=== PATIENT | female | born 1955 | race Caucasian/White ===

== ENCOUNTER 2016-09-20 20:31 | Inpatient (IN) ==
[2016-09-20] MEDS ORDERED: SODIUM CHLORIDE 0.9% 500 ML IV STA (22:05)
[2016-09-20] MEDS ORDERED: methylPREDNISolone SOD SUC 125 MG/2 ML VIAL IV STA (22:05)
[2016-09-20] MEDS ORDERED: cefTRIAXone 1,000 MG in SODIUM CHLORIDE 0.9% 100 ML IV STA (22:05)
[2016-09-20] MEDS ORDERED: MORPHINE 2 MG/1 ML SYRINGE IV STA (22:05)
[2016-09-20] MEDS ORDERED: ONDANSETRON 4 MG/2 ML VIAL IV STA (22:05)
--- NOTE | 2016-09-20 22:25 | XRay Report ---
Exam: XR chest 1V portable Date: 09/20/2016 10:06 PM Indication: Shortness of breath Comparison: 07/20/2010 Technical:AP portable Findings: A few reticular nodular disease present. The heart is at upper limits of normal. No obvious consolidating infiltrate or effusion. External cardiac leads and oxygen tubing are present. The mediastinum is unremarkable the necklace superimpose exam. Impression: 1. No acute cardiopulmonary pathology clearly demonstrated PROCEDURE INTERPRETED AT [facility] DEPARTMENT OF RADIOLOGY Final Report Signed by: Dr. Victor Manuel Elliott
[2016-09-20] MEDS ORDERED: ALBUTEROL 2.5 MG/3 ML NEB RESP TX SCH (22:30)
--- NOTE | 2016-09-20 22:31 | EKG Report ---
Stationary ECG Study [facility] ER Test Date: 09/20/2016 10:28:57 PM Pat Name: FABIANA NOLEN Department: Room: Gender: F Utility Bill Collector: : 1955 Requested by: Edwin Preciado Order Number: [id number] Reading MD: ANA WALLACE Intervals [place] Rate: 79 P: 56 CT: 154 QRS: 27 QRSD: 77 T: 63 QT: 367 QTc: 401 Interpretive Statements Normal ECGSINUS RHYTHM Electronically Signed On 09-21-16 08:59:07 FAMILY DAY CARER by ANA WALLACE [email or web address]
--- NOTE | 2016-09-20 22:50 | Emergency Department Note ---
Blanca Ureña Emily, am scribing for, and in the presence of, Edwin Roman MD 22: 20. Abel Ureña Charles R, MD, personally performed the services described in this documentation, ascribed by Colleen Rios in my presence, and it is both accurate and complete . Arrival - Arrival Chief Complaint: Upper Respiratory Stated Complaint: sob ED Nursing Triage Note: PATIENT STATES THAT SHE HAD A SUDDEN ONSET OF SHORTNESS OF BREATH THIS MORNING. PATIENT STATES SHE HAS BEEN HAVING A COUGH AND CONGESTION FOR THE PAST FEW DAYS. O2 SATURATION OF 96% Mode of Arrival: Wheelchair Limitations: No Limitations Source: Patient Time Seen by Provider: 09/20/16 21:57 - History of Present Illness HPI Narrative: Pt is a 61 y/o female who came to ED with c/o SOB that onset this morning. Pt reports having cough and congestion for past 3 days, but this is first time to have sx of SOB like this visit. Pt denies hx of smoking, lung problems, chest pain, asthma or bronchitis, or being exposed to someone with illness. Pt states she "feels like I need to cough or throw up but scared to because she might choke." Pt's only PMHx is RA. Pt's PCP is Dr. Catherine. Onset (ago): hour(s) Consistency: constant Severity: moderate Severity scale (1-10): 6 Quality: fullness Date of Last Menstrual Period: MENOPAUSE Allergies/Adverse Reactions: Allergies Allergy/AdvReac Type Severity Reaction Status Date / Time No Known Allergies Allergy Unverified 09/20/16 20:42 Home Medications: Home Medications Medication Instructions Recorded Confirmed Type Etanercept [Enbrel] 25 mg SQ Q7DAY 09/20/16 09/20/16 History Leflunomide [Arava] 20 mg PO DAILY 09/20/16 09/20/16 History Review of System - Review of System 12 point system: reviewed and no additional remarkable complaints except as stated - Review of System Constitutional: Absent: chills, fever Head/Ears/Nose/Throat: Absent: nasal drainage Respiratory: Present: cough, respiratory distress (SOB) Cardiovascular: Absent: chest pain, edema, syncope Gastrointestinal: Absent: abdominal pain, nausea Musculoskeletal: Absent: arm pain, back pain, leg pain, neck pain Skin: Absent: rash Neurological: Absent: headache Medical,Surgical,& Family Hx - Medical History Rheumatology: History of;: Rheumatoid Arthritis Other: History of: Miscellaneous Medical Problems (RHEUMATOID ARTHRITIS) - Surgical History Reproductive Surgeries: Surgical HX of;: Tubal Ligation Orthopedic Surgeries: Surgical HX of;: Orthopedic Surgery (ANKLES, SHOULDERS, HIPS, ELBOW, TOES) - Family History Family History: Reports;: Family Cancer - Social History Smoking Status: Never smoker Frequency of Alcohol Use: Occasionally Type of Drug Use: None Exam Vital Signs: Vital Signs Temperature 98.7 F 09/20/16 20:43 Pulse Rate 93 H 09/20/16 23:30 Respiratory Rate 18 09/20/16 23:30 Blood Pressure 137/71 09/20/16 20:43 O2 Sat by Pulse Oximetry 100 09/20/16 23:30 - General General appearance: alert, in distress - Head Head exam: Present: atraumatic, normocephalic - Eye Eye exam: Present: PERRL, EOMI - ENT ENT exam: Present: mucous membranes moist. Absent: mucous membranes dry - Neck Neck exam: Present: full ROM. Absent: tenderness - Chest Chest inspection: Present: symmetric chest wall rise. Absent: tenderness - Respiratory Respiratory exam: Present: accessory muscle use (retractions), rhonchi ( bilateral; equally), wheezes, other (tachypnic). Absent: normal lung sounds bilaterally - Cardiovascular Cardiovascular exam: Present: tachycardia, normal heart sounds - Abdominal Exam Abdominal exam: Present: soft. Absent: distention, tenderness - Extremities Exam Extremities exam: Present: full ROM. Absent: tenderness, pedal edema - Back Exam Back exam: Present: full ROM. Absent: tenderness - Neurological Exam Neurological exam: Present: alert, oriented X3, CN II-XII intact. Absent: motor sensory deficit - Psychiatric Psychiatric exam: Present: normal affect, normal mood - Skin Skin exam: Present: warm, dry Course - Consultations Consultation #1: Dr. Bolden will admit patient Time: 00:34 Results - Labs CBC & BMP: 09/20/16 22:20 09/20/16 22:20 Lab Results: I have reviewed the patients labs Labs: Microbiology 09/20/16 23:01 Nasal Aspirate Influenza Types A,B Antigen (WILFRIDO) - Final Negative for Influenza A Ag Negative for Influenza B Ag Laboratory Tests 09/20/16 22:20 MCV 86.2 L MCHC 31.3 L Lymph % (Auto) 20.0 L Lymph # (Auto) 1.2 L Laboratory Tests 09/20/16 09/20/16 22:20 22:50 Anion Gap 16.6 H Troponin I 0.505 H Total Protein 8.4 H Globulin 4.4 H Albumin/Globulin Ratio 0.9 L Urine Urobilinogen < 2.0 H - Diagnostic Findings Procedure: Chest x-ray: report reviewed by me (No acute cardiomegaly pathology clearly demonstrated.) Disposition Clinical Impression: Upper respiratory infection, Bronchitis, Acute dyspnea, Elevated troponin Case discussed with: patient, patient's family Disposition: Still a Patient Condition: Stable Time of Disposition: 00:44
[2016-09-20] MEDS ORDERED: cefTRIAXone 1,000 MG VIAL ONE (22:54)
[2016-09-20] MEDS ORDERED: methylPREDNISolone SOD SUC 125 MG/2 ML VIAL ONE (22:55)
[2016-09-20] MEDS ORDERED: MORPHINE 2 MG/1 ML SYRINGE ONE (22:55)
[2016-09-20] MEDS ORDERED: ONDANSETRON 4 MG/2 ML VIAL ONE (22:55)
[2016-09-20 22:58] LABS: Basophils % 0.2 % (0.0-0.8); Eosinophils # 0.1 10*3/uL (0.0-0.87); Eosinophils % 0.8 % (0.00-10.9); Hematocrit 39.3 VOL% (35.7-47.0); Hemoglobin 12.3 GM/DL (12.0-16.0); Immature Granulocytes % 0.3 %; Immature Granulocytes Absolute 0.02 #; Lymphocytes # 1.2 10*3/uL (1.4-4.0); Mean Corpuscular HGB Conc 31.3 GM/DL (32-36); Mean Corpuscular Hemoglobin 27 PG (27-34); Mean Corpuscular Volume 86.2 FL (87-102); Mean Platelet Volume 11.1 FL (9.6-12.0); Monocytes # 0.4 10*3/uL (0.11-0.8); Monocytes % 6.4 % (1.7-12.7); Neutrophils # 4.5 10*3/uL (1.4-7.4); Neutrophils % 72.3 % (38.7-73.9); Platelet Count 207 10*3/uL (130-400); Red Blood Count 4.56 10*6/uL (3.8-5.5); Red Cell Distribution Width 14.4 % (9.3-17.3); White Blood Count 6.2 10*3/uL (4.5-13.71)
[2016-09-20 23:17] LABS: D-Dimer 1.5 MG/L FEU; INR 1.1; PT Patient Result 11.4 SECS
[2016-09-20 23:18] LABS: Bilirubin,Total 0.6 MG/DL (0.2-1.0); Magnesium 2.1 MG/DL (1.8-2.4); Osmolality,Calculated 279.3 MOS/KG (273-304); Potassium 3.6 MMOL/L (3.5-5.1); Total Protein 8.4 G/DL (6.4-8.3)
[2016-09-20 23:19] LABS: Troponin I Only 0.505 NG/ML (0.00-0.045)
[2016-09-20 23:27] LABS: Apearance,Urine Slightly Hazy (Clear); Bilirubin,Urine Negative (Negative); Blood, Urine Negative (Negative); Glucose,Urine (UA) Negative (Negative); Ketones,Urine 5 mg/dL (Negative); Mucus,Urine Occasional /LPF (Occasional); Nitrite,Urine Negative (Negative); Protein,Urine Negative; RBC,Urine 1 /HPF (0-4); Squamous Epithelial Cell,Urine Occasional /HPF (0-10); Urine Color Yellow (Yellow); Urine Specific Gravity 1.017 (1.001-1.035); Urine Urobilinogen < 2.0 EU/DL (0.2-1.0); WBC,Urine 3 /HPF (0-6)
[2016-09-21] MEDS ORDERED: ENOXAPARIN 100 MG/ML SYRINGE SUBCUT STA (00:44)
[2016-09-21] MEDS ORDERED: ASPIRIN EC 325 MG TABLET PO STA (00:45)
[2016-09-21] MEDS ORDERED: ENOXAPARIN 60 MG/0.6 ML SYRINGE ONE (00:49)
[2016-09-21] MEDS ORDERED: ASPIRIN 325 MG TABLET ONE (00:49)
--- NOTE | 2016-09-21 02:02 | Hospitalist History & Physical ---
Assessment and Plan (1) Acute dyspnea Status: Acute Assessment and plan: The patient is to the hospital with acute onset of dyspnea. Chest x-ray without evidence of infiltrate. CT angiogram without evidence of pulmonary embolus. The patient takes disease modifying agents for her rheumatoid arthritis and could have pneumonia without much infiltrate apparent. The patient will be admitted to the hospital for pulmonary and cardiac evaluation. We note troponin with mild elevation and we'll recheck that in the morning. Current Visit: Yes (2) Upper respiratory infection Status: Acute Current Visit: Yes (3) Rheumatoid arthritis Status: Acute Current Visit: Yes (4) Elevated troponin Status: Acute Current Visit: Yes History of Present Illness Chief complaint: shortness of breath History of present illness: Ms. Villalobos is a 61 year old female with history of rheumatoid arthritis on disease modifying agents. On the day prior to admission the hospital the patient began having cough and a feeling of difficulty catching her breath. The patient has had sneezing, runny nose, and persistent cough. The patient has had some subjective fever. The patient has not had angina, abdominal pain, or rash. The patient's symptom of shortness of breath is moderate, continuous, and improved somewhat with beta agonist nebulized breathing therapy in the emergency room. The patient has not been previously diagnosed with asthma or bronchitis. The patient is admitted to the hospital for evaluation of shortness of breath in association with pulmonary or cardiac disease. Home Medications Medication Instructions Recorded Confirmed Type Etanercept [Enbrel] 25 mg SQ Q7DAY 09/20/16 09/20/16 History Leflunomide [Arava] 20 mg PO DAILY 09/20/16 09/20/16 History Allergies Allergy/AdvReac Type Severity Reaction Status Date / Time No Known Allergies Allergy Unverified 09/20/16 20:42 Medical,Surgical,& Family Hx - Medical History Rheumatology: History of;: Rheumatoid Arthritis Other: History of: Miscellaneous Medical Problems (RHEUMATOID ARTHRITIS) - Surgical History Reproductive Surgeries: Surgical HX of;: Tubal Ligation Orthopedic Surgeries: Surgical HX of;: Orthopedic Surgery (ANKLES, SHOULDERS, HIPS, ELBOW, TOES) - Family History Family History: Reports;: Family Cancer - Social History Smoking Status: Never smoker Frequency of Alcohol Use: Occasionally Type of Drug Use: None Marital Status: Lives With:: Spouse Functional capacity: independent ambulation 12 point system: reviewed and no additional remarkable complaints except as stated Exam - Constitutional Vitals: Period Temp Pulse Resp BP Sys/Kay Pulse Ox Last 24 Hr 98.7 F 88-93 18-26 137/71 96-100 Exam: Constitutional System: Mild distress. The patient has rheumatoid deformities of her joints. No tremulousness. Head: Normocephalic, atraumatic. Ears, Nose and Throat System: No evidence of Otitis or Mastoiditis. No epistaxis or discharge Eyes System: Pupils equal, round, and reactive. Extraocular muscles intact. Neck: Supple, without adenopathy, No jugular venous distention. No thyromegaly , neck mass, or prior surgery apparent. Uvula without swelling Respiratory System: Chest mild wheezing and mild air trapping to auscultation. Cardiovascular System: Heart with regular rate and rhythm. No murmur. GI System: Abdomen soft, nontender. Normoactive bowel sounds present. Musculoskeletal System: limbs with no pedal edema. Full distal pulses. Rheumatoid deformities Neurological System: No discernable sensory deficit. No aphasia Psychiatric System: Conversation is rational Results - Labs CBC & BMP: 09/20/16 22:20 09/20/16 22:20 Lab Results: I have reviewed the past 24 hour labs Labs: Troponin 0.50
[2016-09-21] MEDS: ALBUTEROL/IPRATROPIUM 3 ML NEB RESP TX SCH ×3 (03:51→11:19)
[2016-09-21 05:09] LABS: Hematocrit 34.8 VOL% (35.7-47.0); Hemoglobin 10.9 GM/DL (12.0-16.0); Immature Granulocytes % 0.5 %; Immature Granulocytes Absolute 0.02 #; Lymphocytes # 0.5 10*3/uL (1.4-4.0); Lymphocytes % 11.2 % (21.3-54.2); Mean Corpuscular HGB Conc 31.3 GM/DL (32-36); Mean Corpuscular Hemoglobin 27 PG (27-34); Mean Corpuscular Volume 85.1 FL (87-102); Mean Platelet Volume 11.3 FL (9.6-12.0); Monocytes # 0.1 10*3/uL (0.11-0.8); Monocytes % 2.7 % (1.7-12.7); Neutrophils # 3.8 10*3/uL (1.4-7.4); Neutrophils % 85.6 % (38.7-73.9); Platelet Count 179 10*3/uL (130-400); Red Blood Count 4.09 10*6/uL (3.8-5.5); Red Cell Distribution Width 14.3 % (9.3-17.3); White Blood Count 4.4 10*3/uL (4.5-13.71)
[2016-09-21 05:41] LABS: Magnesium 1.9 MG/DL (1.8-2.4); Potassium 3.9 MMOL/L (3.5-5.1)
[2016-09-21 05:42] LABS: Troponin I Only 0.368 NG/ML (0.00-0.045)
--- NOTE | 2016-09-21 06:52 | CT Report ---
History is short of breath Axial images obtained with 2-D multiplanar reconstruction images also stored and interpreted 80 cc Omni 350 utilized No enlarged mediastinal or hilar nodes seen. No persistent filling defects in the pulmonary arteries. No pleural effusions present On the final images, there is question of a small gallstone. There are chronic changes in the shoulders Mild areas of scarring in the lung bases again seen. There is a minimally increasing patchy and stranding opacity in the right lung base 4 millimeters nodule in the right lung base is unchanged also present on a study of 2009. A 3 mm nodule in the right lung apex also present on the prior studies. Tiny calcified granuloma present Impression: 1. Minimal patchy infiltrate/atelectasis the right lung base superimposed on chronic changes 2. No evidence of pulmonary embolus seen PROCEDURE INTERPRETED AT [facility] DEPARTMENT OF RADIOLOGY Final Report Signed by: Dr. Jennifer Rushing
--- NOTE | 2016-09-21 07:14 | EKG Report ---
Stationary ECG Study [facility] Test Date: 09/21/2016 7:13:21 AM Pat Name: FABIANA NOLEN Department: Room: 265 Gender: F Dyeing Machine Feeder: DAVID : 1955 Requested by: Weston Bolden Order Number: [id number] Reading MD: ANA WALLACE Intervals [place] Rate: 74 P: 74 [place]: 186 QRS: 30 QRSD: 92 T: 69 QT: 424 QTc: 451 Interpretive Statements Normal ECG.SINUS RHYTHM Electronically Signed On 09-21-16 09:00:24 [employer]LL[employer] MILL OPERATOR by ANA WALLACE [email or web address]
--- NOTE | 2016-09-21 08:06 | XRay Report ---
Exam: Chest 2 views Date: September 21, 2016 at 7:23 AM Comparison: Chest one view portable September 20, 2016, CT chest PE study September 21, 2016 Reason: Dyspnea/shortness of breath Findings: The cardiac silhouette is normal in size. The lungs are hyperexpanded, which can be seen in COPD. Probable minimal atelectasis is seen at the lung bases on a recent CT but is not identified on this study. No focal consolidation, pneumothorax or pleural effusion is identified. The osseous structures appear stable with severe degenerative change at both shoulders. There may be chronic dislocation of the right humeral head. Impression: The lungs are hyperexpanded, which can be seen in COPD. No acute pulmonary process is identified. PROCEDURE INTERPRETED AT [facility] DEPARTMENT OF RADIOLOGY Final Report Signed by: Dr. Preet Singh
[2016-09-21] MEDS ORDERED: LEFLUNOMIDE 10 MG TABLET PO SCH (09:00)
[2016-09-21] MEDS ORDERED: NON-FORMULARY MEDICATION (Etanercept [Enbrel] 25 MG) SQ SCH (09:00)
[2016-09-21] MEDS ORDERED: MONTELUKAST 10 MG TABLET PO SCH (10:30)
--- NOTE | 2016-09-21 10:59 | Pulmonology Consult Note ---
History of Present Illness Chief complaint: Acute cough. Acute shortness of breath. History of present illness: Ms. Villalobos is a 61 year old white female whom I been asked to see in pulmonary consultation for evaluation and treatment. This patient denies any past history of lung problems. She is recently had a sore throat with settled into her chest. Later on the night of 09/21/2016 she developed shortness of breath wheezing she had a good deal of trouble getting her breath subsequently came to the emergency room and was admitted to the hospital. This patient has a number of other problems. See below. Her review of systems is otherwise negative. Allergies. None. Home medicines. Enbrel and Arava Past history. Rheumatoid arthritis. This has required multiple orthopedic surgeries that involved her ankles or knees or hips or shoulders her toes or elbows. Family history is positive for cancer Social history patient does not use tobacco she occasionally uses alcohol but she says not to excess. She is and lives with her . Chest x-rays done 09/20/2015 and done 09/21/2015 shows some hyperinflation no definite infiltrates x-ray at admission shows some slight increase in interstitial markings in the right lower lung field and these could have been an early infiltrate that did did not go ahead and develop. Microbiology. Influenza screen is negative other studies are pending. Lab. Admit white count was 6272 segs 20 lymphs and 6 monos. H&H is 12.3/39.3. INR is 1.1 electrolytes were normal. Creatinine was 0.6. Natruretic peptide was 44 total protein and globulins were elevated 8.4 4.4 respectively. Urinalysis showed no evidence of infection. Vital signs. See below Psychiatric. Oriented 3 Eyes sclera conjunctiva are normal face is symmetrical. Salivary glands are normal nares lips and tongue are normal Neck. Symmetrical. No meningismus Lymphatics. No submandibular cervical supraclavicular adenopathy. Arterial exam carotids are decreased I do not hear any bruits upper extremity pulses are palpable. Lower extremity pulses are palpable no evidence of ischemia. Venous exam of the neck upper and lower extremities are normal. Neurologic. Cranial nerves are intact long track motor functions intact Chest. Very mild tracheal and large airway wheeze with very mild associated congestion. I do not hear any peripheral wheezes. There was no significant chest wall tenderness Heart. Regular. Possible midsystolic click. Breast deferred Abdomen. Liver edge feels normal bowel sounds are present no tenderness Extremities. Deformity of the digits in the upper and lower extremities secondary to rheumatoid arthritis. Multiple surgical scars of major joints such as the shoulders and the knees. No evidence of deep venous thrombophlebitis. The remainder the physical exam is noncontributory. Impression. 1. Acute respiratory infection that could have had a viral component but appears now to have a bacterial component. This is resulted in tracheal and large airway wheezing which is a new symptom for the patient. She had associated shortness of breath. It is possible she had an early right lower lung interstitial infiltrate on the night of admission but if she did this is resolved. 2. Severe rheumatoid arthritis 3. Immunologic modifying medicines. Plan. 1. Continue inhalation therapy. Patient says this is helped her a lot. 2. Tessalon Perles 200 mg 3 times a day. She has a lot of coughing but very little production. 3. Mucinex 600 mg twice a day then sputum 4. Sputum for Gram stain culture and sensitivity 5. Cold agglutinins 6. If wheezing does not resolve can consider steroids. 7. I have discussed the case with Dr. Bolden and we have coordinated longterm Medications Medication Instructions Recorded Confirmed Type Etanercept [Enbrel] 25 mg SQ Q7DAY 09/20/16 09/21/16 History Leflunomide [Arava] 20 mg PO DAILY 09/20/16 09/21/16 History cycloSPORINE OPH EMUL [Restasis] 1 drop BOTH EYES BID 09/21/16 09/21/16 History Allergies Allergy/AdvReac Type Severity Reaction Status Date / Time No Known Allergies Allergy Unverified 09/20/16 20:42 Exam (Pulmonay) H&P - Constitutional Vitals: Period Temp Pulse Resp BP Sys/Kay Pulse Ox Last 24 Hr 96.7 F-97.2 F 75-89 18-20 122-128/64-67 96-100 Medical,Surgical,& Family Hx - Medical History Rheumatology: History of;: Rheumatoid Arthritis Genitourinary: History of: Kidney Stones Other: History of: Miscellaneous Medical Problems (RHEUMATOID ARTHRITIS) - Surgical History Reproductive Surgeries: Surgical HX of;: Tubal Ligation Orthopedic Surgeries: Surgical HX of;: Orthopedic Surgery (ANKLES, SHOULDERS, HIPS, ELBOW, TOES) - Family History Family History: Reports;: Family Cancer (Mother-Uterine cancer), Additional Family History (Father is on dialysis) - Social History Smoking Status: Never smoker Frequency of Alcohol Use: Occasionally Type of Drug Use: None Results - Labs CBC & BMP: 09/21/16 03:48 09/21/16 03:48
[2016-09-21] MEDS ORDERED: REGADENOSON 0.4 MG/5 ML SYRINGE IV ONE (11:10)
[2016-09-21 12:21] VITALS: BP 110/62
--- NOTE | 2016-09-21 13:55 | Cardiology Consult Note ---
Ramon Ureña Lauren, RN, am scribing for, and in the presence of, Yajaira Rebollar MD 13:55. Assessment and Plan - Time spent with patient Time spent with patient: Less than 30 minutes (1) Acute dyspnea Status: Acute Assessment and plan: We will set her up for stress testing today to rule out any underlying coronary artery disease. Current Visit: Yes (2) Elevated troponin Status: Acute Assessment and plan: Denies chest pain, palpitations, dizziness, lightheadedness, syncope. Denies recent chest pain or shortness of breath on exertion. We will set her up for stress test today to rule out for underlying CAD. Current Visit: Yes (3) Rheumatoid arthritis Status: Chronic Assessment and plan: Followed by hospital medicine. Current Visit: Yes (4) Upper respiratory infection Status: Acute Assessment and plan: Followed by hospital medicine. This could be contributing to her shortness of breath. Current Visit: Yes History of Present Illness - Data of Consult Patient: new to practice Consult date: 09/21/16 Requesting Physician: Danelle Leung Primary care physician: Ramy Lawson - Consult Narrative Reason for consult: dyspnea, elevated troponin History of present illness: Ms. Villalobos is a 61 year old female who has never seen a jump roll operator. Her primary care provider is Dr. Lawson. She has a past medical history of rheumatoid arthritis and panic attacks. She denies any history of diabetes, hypertension, hyperlipidemia, or lung problems. She has never smoked. She denies any significant family history of heart disease. She presented to the emergency room this morning with complaints of acute onset of dyspnea. She tells me she woke up with a cough and then had a panic attack where she felt like she could not breathe. She reports feeling like there were secretions in her chest that she could not clear. CT is negative for PE. Chest x-ray shows no evidence of infiltrate. She has had a slight bump in her troponin. First troponin was 0.505, second troponin was 0.368. She denies chest pain, palpitations, dizziness, lightheadedness, syncope. She denies any recent fever or chills. She denies any recent exertional chest pain or exertional shortness of breath. She reports she is feeling much better today and is having no trouble breathing. She has been in sinus rhythm with well- controlled rate. Blood pressure has been well controlled. She did not have any antecedent exertional symptoms, nor has she experienced a change in her exercise tolerance. She currently feels that she is at baseline. We will set her up for stress test today to rule out for underlying CAD. CC: Danelle Leung MD - Home Medications and Allergies Home Medications: Home Medications Medication Instructions Recorded Confirmed Type Etanercept [Enbrel] 25 mg SQ Q7DAY 09/20/16 09/21/16 History Leflunomide [Arava] 20 mg PO DAILY 09/20/16 09/21/16 History cycloSPORINE OPH EMUL [Restasis] 1 drop BOTH EYES BID 09/21/16 09/21/16 History Allergies/Adverse Reactions: Allergies Allergy/AdvReac Type Severity Reaction Status Date / Time No Known Allergies Allergy Unverified 09/20/16 20:42 - Constitutional Constitutional: Absent: anorexia, chills, daytime sleepiness, excessive sweating , fatigue, fever(s), frequent falls, headache(s), increased appetite, lethargy, malaise, night sweats, stops breathing during sleep, weakness, weight gain, weight loss - EENT Eyes: Absent: blurry vision, diplopia, loss of vision Ears: Absent: decreased hearing, ear discharge, ear pain Nose, mouth and throat: Absent: dysphagia, epistaxis, headache(s), hoarseness, lip swelling, nasal congestion, neck mass, neck pain, sinus pressure, sore throat, throat swelling, tongue swelling, vertigo - Cardiovascular Cardiovascular: Present: as per HPI, dyspnea. Absent: chest pain at rest, chest pain with activity, claudication, diaphoresis, dyspnea on exertion, edema , radiating jaw, neck or arm pain, lightheadedness, orthopnea, palpitations, PND - Respiratory Respiratory: Present: as per HPI, cough, dyspnea. Absent: hemoptysis, dyspnea on exertion, wheezing, snoring, pain on inspiration - Gastrointestinal Gastrointestinal: Absent: abdominal pain, bloating, change in bowel habits, coffee ground emesis, constipation, cramping, diarrhea, dysphagia, heartburn, hematemesis, loose stools, melena, nausea, vomiting - Genitourinary Genitourinary: Absent: difficulty urinating, dysuria, flank pain, urinary frequency, urinary hesitancy, urinary incontinence - Musculoskeletal Musculoskeletal: Present: joint swelling (history of RA), limited range of motion (history of RA). Absent: arthralgias, back pain - Neurological Neurological: Absent: abnormal gait, abnormal speech, behavioral changes, confusion, convulsions, disequilibrium, dizziness, focal weakness, frequent falls, headache(s), memory loss, numbness, paresthesias, radicular pain, syncope , tremor(s) - Psychiatric Psychiatric: Present: panic attacks. Absent: anxiety, depression, memory loss - Endocrine Endocrine: Absent: cold intolerance, fatigue, heat intolerance, polydipsia, polyphagia - Hematologic/Lymphatic Hematologic/Lymphatic: Absent: easy bleeding, easy bruising, lymphadenopathy Medical,Surgical,& Family Hx - Medical History Rheumatology: History of;: Rheumatoid Arthritis Genitourinary: History of: Kidney Stones Other: History of: Miscellaneous Medical Problems (RHEUMATOID ARTHRITIS) - Surgical History Reproductive Surgeries: Surgical HX of;: Tubal Ligation Orthopedic Surgeries: Surgical HX of;: Orthopedic Surgery (ANKLES, SHOULDERS, HIPS, ELBOW, TOES) - Family History Family History: Reports;: Family Cancer (Mother-Uterine cancer), Additional Family History (Father is on dialysis) - Social History Smoking Status: Never smoker Frequency of Alcohol Use: Occasionally Type of Drug Use: None Physical Examination Vital Signs Temp Pulse Resp BP Pulse Ox 98.7 F 89 20 137/71 96 09/20/16 20:43 09/20/16 20:43 09/20/16 20:43 09/20/16 20:43 09/20/16 20:43 General: Present: Appears Well, No Apparent Distress HEENT: Present: Normocephaly, Mucus Membranes Moist Neck: Present: Supple Neck, Midline Trachea, No Masses, No Bruit, No Lymphadenopathy, No Thyromegaly Cardiac: Present: Reg Rate and Rhythm, No Murmur Lungs: Present: Normal Exam, Clear Ascult./Percussion, Normal Breath Sounds, No Wheeze, Rales, Rhonchi Neuro: Present: Grossly Intact. Absent: Resting Tremor, Essential Tremor Abdomen: Present: Soft, Active Bowel Sounds, No Masses, No Pulsations/Bruits, Non-Tender Skin: Present: Clear. Absent: Rash Musculoskeletal: Present: No Pain, Normal Range of Motion Extremities: Present: No Clubbing, No Cyanosis, Normal Upper Extr. Pulses, Normal Lower Extr. Pulses, Edema (MEDIA SALES REPRESENTATIVE to bilateral ankles) Result/EKG - Labs CBC & BMP: 09/21/16 03:48 09/21/16 03:48 Lab Results: I have reviewed the past 24 hour labs Labs: Laboratory Results - last 24 hr 09/21/16 09/21/16 03:48 03:48 WBC 4.4 L RBC 4.09 Hgb 10.9 L Hct 34.8 L MCV 85.1 L MCH 27 MCHC 31.3 L RDW 14.3 Plt Count 179 MPV 11.3 Neut % (Auto) 85.6 H Lymph % (Auto) 11.2 L [place] % (Auto) 2.7 Eos % (Auto) 0.0 Baso % (Auto) 0.0 Neut # (Auto) 3.8 Lymph # (Auto) 0.5 L [place] # (Auto) 0.1 L Eos # (Auto) 0.0 Baso # (Auto) 0.0 Immature Gran % 0.5 Nucleated RBC % 0.0 Immature Gran # 0.02 Nucleated RBCs # 0.00 Sodium 143 Potassium 3.9 Chloride 109 H Carbon Dioxide 23 Anion Gap 14.9 BUN 9 Creatinine 0.50 L GFR Calculation 98 BUN/Creatinine Ratio 18.00 Glucose 148 H Calculated Osmolality 286.0 Calcium 8.0 L Magnesium 1.9 Total Creatine Kinase 36 Troponin I 0.368 H D - EKG EKG results: interpreted by me, sinus rhythm I, Yajaira Rebollar MD, personally performed the services described in this documentation, ascribed by Lovely Navarro, RN in my presence, and it is both accurate and complete 355 .
--- NOTE | 2016-09-21 14:46 | Nuclear Medicine Report ---
EXERCISE NUCLEAR STRESS TEST DATE: 09/21/2016 REFERRING: Yajaira Rebollar MD INTERPRETING: Yajaira Rebollar MD INDICATION: A 61-year-old female with dyspnea, elevated troponin. PROCEDURE: The patient underwent exercise Cardiolite per protocol, and 10 mCi of Technetium-99 were injected for rest imaging. Subsequently, the patient was exercised per [place] protocol and at peak stress 30 mCi of Technetium-99 were injected for stress imaging. ECG interpretation was supervised by and interpreted by rajni Wyatt. The patient exercised to 4.7 METS, maximum heart rate 138 beats per minute, 85% maximum predicted heart rate. Peak blood pressure was 150/90. SPECT images were obtained in the short axis, horizontal, and vertical long axis with gating. Eject ion fraction is 74%. End-diastolic volume 48 mL, end-systolic 12 mL, stroke volume is 35 mL. Overa ll wall motion and thickening is grossly normal. At rest, there is homogenous radiotracer uptake throughout the myocardium. With stress imaging, no new radiotracer defects develop. IMPRESSION: 1. NORMAL LEFT VENTRICULAR SYSTOLIC FUNCTION. 2. GOOD EXERCISE TOLERANCE. 3. NORMAL CHRONOTROPIC RESPONSE TO EXERCISE. 4. NORMAL MYOCARDIAL PERFUSION WITHOUT EVIDENCE OF ISCHEMIA. Procedure performed and interpreted at [facility] Department of Radiology.
[2016-09-21] MEDS ORDERED: BENZONATATE 100 MG CAPSULE PO SCH (15:00)
--- NOTE | 2016-09-21 15:01 | Discharge Summary ---
Hospital Course - Hospital Course Hospital Course: see addendum to H&P from this morning. Diagnosis - Discharge Diagnosis (1) Bronchitis Status: Acute (2) Acute dyspnea Status: Acute (3) Elevated troponin Status: Acute (4) Rheumatoid arthritis Status: Chronic Specialty Discharge - Follow Up or Referrals Follow up with: Victor Manuel Catherine MD [Physician] - 5 Days Discharge Plan - Discharge Data Disposition: Disch To Home/Self Care Condition at Discharge: Stable Discharge Diet: advance to your usual diet Activity: resume usual activities as tolerated - Discharge Medications New Azithromycin [Azithromycin Z Pack] 250 mg PO DIRECTED #1 tablet Montelukast Tab [Singulair Tab] 10 mg PO DAILY #30 tablet Guaifenesin [Guaifenesin ER] 600 mg PO BID #30 tab.er.12h Benzonatate [Tessalon] 200 mg PO TID #30 capsule Continue Etanercept [Enbrel] 25 mg SQ Q7DAY cycloSPORINE OPH EMUL [Restasis] 1 drop BOTH EYES BID Leflunomide [Arava] 20 mg PO DAILY - Follow Up or Referral - Forms/Instructions Exam - Constitutional Vitals: Period Temp Pulse Resp BP Sys/Kay Pulse Ox Last 24 Hr 96.7 F-98.6 F 75-89 18-20 110-128/62-67 96-100 General appearance: no acute distress - Respiratory Respiratory exam: Present: clear to auscultation bilaterally - Cardiovascular Cardiovascular exam: Present: regular rate and rhythm - GI/Abdominal GI/Abdominal exam: Present: normal bowel sounds, soft. Absent: tenderness - Neurological Exam Neurological exam: Present: alert, oriented X3 Discharge Results Procedures and tests throughout hospitalization: Pending Orders 09/21/16 10:22 Sputum Culture and Gram Stain Routine 09/21/16 12:25 Cold Agglutinins Routine Legionella Pneumophilia Ab Routine 09/22/16 04:00 XR chest 2V IN AM Labs on day of discharge: Labs from last 24 hours 09/21/16 09/21/16 03:48 03:48 WBC 4.4 L RBC 4.09 Hgb 10.9 L Hct 34.8 L MCV 85.1 L MCH 27 MCHC 31.3 L RDW 14.3 Plt Count 179 MPV 11.3 Neut % (Auto) 85.6 H Lymph % (Auto) 11.2 L [place] % (Auto) 2.7 Eos % (Auto) 0.0 Baso % (Auto) 0.0 Neut # (Auto) 3.8 Lymph # (Auto) 0.5 L [place] # (Auto) 0.1 L Eos # (Auto) 0.0 Baso # (Auto) 0.0 Immature Gran % 0.5 Nucleated RBC % 0.0 Immature Gran # 0.02 Nucleated RBCs # 0.00 Sodium 143 Potassium 3.9 Chloride 109 H Carbon Dioxide 23 Anion Gap 14.9 BUN 9 Creatinine 0.50 L GFR Calculation 98 BUN/Creatinine Ratio 18.00 Glucose 148 H Calculated Osmolality 286.0 Calcium 8.0 L Magnesium 1.9 Total Creatine Kinase 36 Troponin I 0.368 H D DS: Provider Date of admission: 09/21/16 01:25 Primary care physician: Temo Ray MD Attending physician on admission: Danelle Leung MD Consults: 09/21/16 02:04 Consult to Physician [CONS] Routine Comment: dyspnea Consulting Provider: Victor Manuel Catherine Consult to Physician [CONS] Routine Comment: dyspnea, elevated troponin Consulting Provider: Yajaira Rebollar Consult to Specialist Group: Cardiology Person Notified: JUSTINO Date Notified: 09/21/16 Time Notified: 07:50 Discharging clinician: Danelle Leung MD
--- NOTE | 2016-09-21 20:18 | ECHO Report ---
Fatou Villalobos Exam Date: 09/21/2016 14:20 Referring Physician: Technologist: Mustapha PHAN Age: 61 Ht (in): Wt (lb): Gender: F Exam Location: [facility] Echo Indications: cardia eval, URI, Bronchitis, elevated troponin BP: / HR: Rhythm: Sinus Technical Quality: Fair IMPRESSIONS Normal LV systolic and diastolic function, ejection fraction 60%. Trace mitral regurgitation. Mild mitral regurgitation. MEASUREMENTS (Male / Female) Normal Values 2D ECHO LV Diastolic Diameter PLAX 3.5 cm 4.2 - 5.9 / 3.9 - 5.3 cm LV Systolic Diameter PLAX 2.3 cm LV Fractional Shortening PLAX 36.3 % IVS Diastolic Thickness 1.1 cm 0.6 - 1.0 / 0.6 - 0.9 cm LVPW Diastolic Thickness 0.9 cm 0.6 - 1.0 / 0.6 - 0.9 cm RV Internal Dim ED PLAX 2.0 cm Aortic Root Diameter 2.4 cm LA Systolic Diameter LX 2.5 cm 3.0 - 4.0 / 2.7 - 3.8 cm DOPPLER TR Peak Velocity 195.0 cm/s TR Peak Gradient 15.2 mmHg FINDINGS Left Ventricle Normal left ventricular size, systolic function and wall thickness, with no regional wall motion abnormalities. Left ventricular ejection fraction is estimated at 55-60 %. Right Ventricle The right ventricle is normal in size and function. Right Atrium The right atrium is normal in size. Left Atrium The left atrium is normal in size. Mitral Valve Morphologically normal mitral valve without significant stenosis or prolapse. Trace mitral valve regurgitation. Aortic Valve Aortic valve sclerosis without stenosis or regurgitation. Tricuspid Valve Morphologically normal tricuspid valve. Mild tricuspid valve regurgitation. Tricuspid regurgitation velocities suggest a PAP of 15.2 mmHg + RAP. Pulmonic Valve Morphologically normal pulmonic valve without significant stenosis. Pericardium Normal pericardium without effusion. Aorta Normal ascending aorta dimension. Yajaira Rebollar MD (Electronically Signed) Final Date: 21 September 2016 20:16
[2016-09-21] MEDS ORDERED: cefTRIAXone 1,000 MG in SODIUM CHLORIDE 0.9% 100 ML IV SCH (23:00)
== END 2016-09-21 16:15 | disposition home or self-care (01) | DRG 203 ==
LOC: N.ED 20:31 → N.EDINP 09-21 01:25 → N.TELES 09-21 02:22
PROVIDERS: ADMIT Internal Medicine; ATTEND Internal Medicine

== ENCOUNTER 2016-09-27 17:22 | Inpatient (IN) ==
[2016-09-27] MEDS ORDERED: ALBUTEROL/IPRATROPIUM 3 ML NEB RESP TX PRN (17:37)
[2016-09-27] MEDS ORDERED: AMINOPHYLLINE 250 MG in SODIUM CHLORIDE 0.9% 100 ML IV ONE (17:41)
--- NOTE | 2016-09-27 17:48 | Pulmonology History & Physical ---
Review of systems: as per HPI History of Present Illness Chief complaint: SOB/wheezing cough sore throat asthma exacerbation History of present illness: SHIRIN Yi acting as scribe for Dr. Victor Manuel Catherine. Ms. Villalobos is a 61 year old white female admitted from the office 09/27/16 for status asthmaticus, acute bronchitis with bronchospasm, severe shortness of breath and wheezing, along with sore throat and productive cough. This patient denies any past history of lung problems. She is recently had a sore throat with settled into her chest. Later on the night of 09/21/2016 she developed shortness of breath wheezing she had a good deal of trouble getting her breath subsequently came to the emergency room and was admitted to the hospital. This patient has a number of other problems. See below. Her review of systems is otherwise negative. She was discharged from the hospital on and she was seen in pulmonary consultation during this hospitalization and started on Tessalon Perles, Mucinex, and Singulair. She was discharged by her attending physician with prescriptions for Zithromax, Singulair, Mucinex, and Tessalon Perles along with her home medications. She was doing well at time of discharge and breathing was significantly improved. Upon return to office today for hospital follow up she admits she has been having alternating days where she feels better some days and worse others. On the morning of her appointment she states she woke up feeling better and around 10AM she suddenly became short of breath again and started wheezing. This is the same presentation she had originally when she presented to the emergency department before previous admission. She was given Duoneb inhalation treatment and 0.1mg of Epinephrine in the clinic and after this she still had severe wheezing with a trace/mild improvement in her shortness of breath. Due to the severity of her symptoms and acute onset of shortness of breath and wheezing along with her PMHx decision was made to admit to inpatient for further evaluation and treatment. All other ROS noncontributory. Allergies. NO KNOWN DRUG ALLERGIES Home medicines. Restasis opthalmic drops 1 drop both eyes BID, Singulair 10mg daily, Arava 20mg daily, Mucinex 600mg BID, Enbrel 25mg subq weekly, Tessalon 200mg PO TID, and Zithromax 250mg daily--course completed. Past history. Hospitalization at [facility] 09/20/16-09/21/16 for shortness of breath and acute bronchitis. Rheumatoid arthritis. This has required multiple orthopedic surgeries that involved her ankles or knees or hips or shoulders her toes or elbows. Family history is positive for cancer Social history: Patient does not use tobacco she occasionally uses alcohol but she says not to excess. She is and lives with her . Chest X-Ray 09/27/16 shows some hyperinflation slight increased interstitial markings in the right middle lung area which is likely and early infiltrate. Sputums are pending. Lab. WBC 8300 with 77.3% segs and 17.3% lymphs. RBC 4.54 H&H 12.3/39.7 with low normal indices and top normal RDW. Potassium 3.4 BUN/Creatinine 12/0.5 Mag 2.1 Free T4 is normal at 1.13 TSH 6.83. Sputum gram stain shows few gram positive cocci pairs, chains, and clusters seen with few fungal elements, > 25 WBCs. EKG is pending. Home Medications Medication Instructions Recorded Confirmed Type Etanercept [Enbrel] 25 mg SQ Q7DAY 09/20/16 09/27/16 History Leflunomide [Arava] 20 mg PO DAILY 09/20/16 09/27/16 History Benzonatate [Tessalon] 200 mg PO TID #30 capsule 09/21/16 09/27/16 Rx Guaifenesin [Guaifenesin ER] 600 mg PO BID #30 tab.er.12h 09/21/16 09/27/16 Rx Montelukast Tab [Singulair Tab] 10 mg PO DAILY #30 tablet 09/21/16 09/27/16 Rx cycloSPORINE OPH EMUL [Restasis] 1 drop BOTH EYES BID 09/21/16 09/27/16 History Allergies Allergy/AdvReac Type Severity Reaction Status Date / Time No Known Allergies Allergy Unverified 09/20/16 20:42 Medical,Surgical,& Family Hx - Medical History Rheumatology: History of;: Rheumatoid Arthritis Genitourinary: History of: Kidney Stones Other: History of: Miscellaneous Medical Problems (RHEUMATOID ARTHRITIS) - Surgical History Reproductive Surgeries: Surgical HX of;: Tubal Ligation Orthopedic Surgeries: Surgical HX of;: Orthopedic Surgery (ANKLES, SHOULDERS, HIPS, ELBOW, TOES) - Family History Family History: Reports;: Family Cancer (Mother-Uterine cancer) - Social History Smoking Status: Never smoker Results - Labs CBC & BMP: 09/28/16 06:56 09/28/16 06:56 Exam (Pulmonay) H&P - Constitutional Vitals: Temp 97.6 HR 95 RR 22 BP 133/71 O2 sat 98% on 2L Exam: Psychiatric. Oriented 3 acute and chronically ill appearing. HEENT: Eyes sclera conjunctiva are normal face is symmetrical. Salivary glands are normal nares lips and tongue are normal. Neck. Symmetrical. No meningismus Lymphatics. No submandibular cervical supraclavicular adenopathy. Arterial exam carotids are decreased I do not hear any bruits upper extremity pulses are palpable. Lower extremity pulses are palpable no evidence of ischemia. Venous exam of the neck upper and lower extremities are normal. Neurologic. Cranial nerves are intact long track motor functions intact Chest. Diffuse inspiratory and expiratory high pitched wheezes throughout large airways and peripheral airways. There is some loose large airway congestion on expiration. There was no significant chest wall tenderness Heart. Regular. Possible midsystolic click. Breast deferred Abdomen. Liver edge feels normal bowel sounds are present no tenderness Extremities. Deformity of the digits in the upper and lower extremities secondary to rheumatoid arthritis. Multiple surgical scars of major joints such as the shoulders and the knees. No evidence of deep venous thrombophlebitis. The remainder the physical exam is noncontributory. Impression: #1 Status asthmaticus #2 Acute bronchitis with bronchospasm #3 Shortness of breath with diffuse wheezing #4 Early right middle lung infiltrate, likely bacterial component. #5 Productive cough #6 Severe rheumatoid arthritis requiring Immunologic modifying medicines. #7 See past history. Plan: #1 Admit to inpatient for further evaluation and treatment #2 IV Aminophylline 250 loading dose then 10mg/kg/hr with daily Theophylline level #3 SoluMedrol IVP, Increase singulair to BID, Merrem 500mg q8h, inhalation treatment with Duonebs QID and PRN with Acapella. #4 CXR, Sputum for gram stain C&S, Cold agglutinins, Legionella titer, see lab orders. #5 Continue home medicines as directed. #6 See orders.
[2016-09-27 19:05] LABS: Basophils % 0.1 % (0.0-0.8); Eosinophils % 0.1 % (0.00-10.9); Hematocrit 39.7 VOL% (35.7-47.0); Hemoglobin 12.3 GM/DL (12.0-16.0); Immature Granulocytes % 0.1 %; Immature Granulocytes Absolute 0.01 #; Lymphocytes # 1.4 10*3/uL (1.4-4.0); Lymphocytes % 17.3 % (21.3-54.2); Mean Corpuscular Hemoglobin 27 PG (27-34); Mean Corpuscular Volume 87.4 FL (87-102); Mean Platelet Volume 11.6 FL (9.6-12.0); Monocytes # 0.4 10*3/uL (0.11-0.8); Monocytes % 5.1 % (1.7-12.7); Neutrophils # 6.4 10*3/uL (1.4-7.4); Neutrophils % 77.3 % (38.7-73.9); Platelet Count 213 T/CUMM (130-400); Red Blood Count 4.54 MC/CUMM (3.8-5.5); Red Cell Distribution Width 14.6 % (9.3-17.3); White Blood Count 8.3 T/CUMM (4-12)
--- NOTE | 2016-09-27 19:09 | XRay Report ---
XR chest 2V Indication: Shortness of breath. Chest 2 views: Comparison 09/21/16. Increased reticular prominence of the lungs noted throughout, most consistent with increased fluid. Subpleural septal thickening at the costophrenic sulci noted as well. The heart remains normal in size. No focal pneumonia. Severe degenerative changes of the shoulders with erosive changes of the right shoulder noted. Impression: Fluid overload. PROCEDURE INTERPRETED AT [facility] DEPARTMENT OF RADIOLOGY Final Report Signed by: Joshua Lopez M.D.
[2016-09-27] MEDS: MEROPENEM 500 MG in SODIUM CHLORIDE 0.9% 100 ML IV SCH (19:12)
[2016-09-27] MEDS: ALBUTEROL/IPRATROPIUM 3 ML NEB RESP TX SCH (19:15)
[2016-09-27 19:40] LABS: Albumin 3.6 G/DL (3.4-5.0); Bilirubin,Total 0.5 MG/DL (0.2-1.0); Calcium 8.7 MG/DL (8.5-10.1); Magnesium 2.1 MG/DL (1.8-2.4); Osmolality,Calculated 284.1 MOS/KG (273-304); Potassium 3.4 MMOL/L (3.5-5.1); Thyroid Stimulating Hormone 6.83 uIU/ml (0.358-3.74); Total Protein 8.1 G/DL (6.4-8.3)
[2016-09-27] MEDS: BENZONATATE 100 MG CAPSULE PO PRN (20:20)
[2016-09-27] MEDS: methylPREDNISolone SOD SUC 40 MG/1 ML VIAL IV SCH (20:20)
[2016-09-27] MEDS: cycloSPORINE OPH EMUL 1 VIAL BOTH EYES SCH ×2 (20:20→20:24)
[2016-09-27] MEDS: MONTELUKAST 10 MG TABLET PO SCH (20:21)
[2016-09-27] MEDS: ZALEPLON 5 MG CAPSULE PO PRN (22:00)
[2016-09-27] MEDS: ALBUTEROL 0.4 MG/ML 30 ML/BOTTLE PO SCH (22:00)
[2016-09-27 22:02] LABS: Apearance,Urine Slightly Hazy (Clear); Bilirubin,Urine Negative (Negative); Blood, Urine Negative (Negative); Glucose,Urine (UA) Negative (Negative); Ketones,Urine 80 mg/dL (Negative); Mucus,Urine Occasional /LPF (Occasional); Nitrite,Urine Negative (Negative); Protein,Urine 100 MG/DL; RBC,Urine <1 /HPF (0-4); Squamous Epithelial Cell,Urine Occasional /HPF (0-10); Urine Color Yellow (Yellow); Urine Specific Gravity 1.021 (1.001-1.035); Urine Urobilinogen < 2.0 EU/DL (0.2-1.0); WBC,Urine 1 /HPF (0-6)
[2016-09-27] MEDS: AMINOPHYLLINE 500 MG in SODIUM CHLORIDE 0.9% 480 ML IV SCH (23:29)
[2016-09-28] MEDS: MEROPENEM 500 MG in SODIUM CHLORIDE 0.9% 100 ML IV SCH ×3 (02:05→18:18)
[2016-09-28] MEDS: methylPREDNISolone SOD SUC 40 MG/1 ML VIAL IV SCH ×3 (02:08→18:18)
[2016-09-28] MEDS: ALBUTEROL 0.4 MG/ML 30 ML/BOTTLE PO SCH ×3 (05:55→21:46)
[2016-09-28 07:18] LABS: Basophils % 0.1 % (0.0-0.8); Hematocrit 36.8 VOL% (35.7-47.0); Hemoglobin 11.5 GM/DL (12.0-16.0); Immature Granulocytes % 0.4 %; Immature Granulocytes Absolute 0.04 #; Lymphocytes # 0.8 10*3/uL (1.4-4.0); Lymphocytes % 7.8 % (21.3-54.2); Mean Corpuscular HGB Conc 31.3 GM/DL (32-36); Mean Corpuscular Hemoglobin 27 PG (27-34); Mean Corpuscular Volume 85.8 FL (87-102); Mean Platelet Volume 11.2 FL (9.6-12.0); Monocytes # 0.2 10*3/uL (0.11-0.8); Monocytes % 1.7 % (1.7-12.7); Neutrophils # 9.7 10*3/uL (1.4-7.4); Platelet Count 214 T/CUMM (130-400); Red Blood Count 4.29 MC/CUMM (3.8-5.5); Red Cell Distribution Width 14.5 % (9.3-17.3); White Blood Count 10.8 T/CUMM (4-12)
[2016-09-28] MEDS: ALBUTEROL/IPRATROPIUM 3 ML NEB RESP TX SCH ×4 (07:22→19:28)
[2016-09-28 07:45] LABS: Lymphocytes 7 % (20-55); Platelet Estimate Adequate; Segmented Neutrophils 92 % (50-85); Total Cells Counted 100
[2016-09-28 07:46] LABS: Elliptocytes Few; Hypochromasia 1+
[2016-09-28 07:49] LABS: Calcium 8.2 MG/DL (8.5-10.1); Osmolality,Calculated 290.8 MOS/KG (273-304); Potassium 4.8 MMOL/L (3.5-5.1)
--- NOTE | 2016-09-28 08:00 | EKG Report ---
Stationary ECG Study [facility] Test Date: 09/28/2016 7:38:05 AM Pat Name: FABIANA NOLEN Department: Room: 523 Gender: F Loss Prevention Officer: TAYLA : 1955 Requested by: Kwabena Sandhu Order Number: [id number] Reading MD: ANA WALLACE Intervals [place] Rate: 80 P: 64 MT: 128 QRS: 60 QRSD: 84 T: 35 QT: 398 QTc: 434 Interpretive Statements (DR ANA WALLACE TO INTERP) SINUS RHYTHM NONSPECIFIC T-WAVE ABNORMALITY Normal ECG Electronically Signed On 10-05-16 09:17:24 TURRET PRESS OPERATOR by ANA WALLACE [email or web address]
[2016-09-28] MEDS: MONTELUKAST 10 MG TABLET PO SCH ×2 (10:00→20:37)
[2016-09-28] MEDS: LEFLUNOMIDE 10 MG TABLET PO SCH (10:00)
[2016-09-28] MEDS: PANTOPRAZOLE 40 MG TABLET PO SCH (10:00)
[2016-09-28] MEDS: cycloSPORINE OPH EMUL 1 VIAL BOTH EYES SCH ×2 (10:01→20:37)
--- NOTE | 2016-09-28 10:51 | Pulmonology Progress Note ---
Pulmonary - PN: Subj Interval history: MIKE Yi-Ritchie acting as scribe for Dr. Victor Manuel Catherine. Ms. Villalobos is a 61 year old white female admitted from the office 09/27/16 for status asthmaticus, acute bronchitis with bronchospasm, severe shortness of breath and wheezing, along with sore throat and productive cough. See admission H&P for full details of admission. She is seen today along with Ted Hassan, ANP-BC, GNP-BC and Elisa Garcia RN. Today Ms. Villalobos admits she is breathing better still has some mild shortness of breath but it is markedly improved. She is complaining of right ear pain and right sided throat pain. Unsure if these two symptoms correlate and happen at the same time. Overall she is improving. Medications have been reviewed. Labs have been reviewed. WBC 40096 with 90% segs and 7.8% lymphs H&H 11.5/36.8. with low MCV and low normal MCH RDW is top normal. Potassium 4.8 BUN/Creatinine 9/0.5. Radiology has been reviewed. On review of past records previous CXR done by her radiologist Dr. Kobe Garcia in [place] showed Chronic nonspecific interstitial prominence in the lungs with no acute lobar airspace consolidation or effusion, equivocal cavitary lesion in the left midlung zone measuring up to 1.4 cm in diameter. Chronic cystic changes in the left humeral head with advanced erosive changes involving the right humeral head and distal right clavicle. Also CT chest from 08/15/16 was reviewed that was ordered by her casing flusher Dr. Kobe Garcia which showed progressive atelectasis/ infiltration in the lungs especially in the right middle lobe with progressive indeterminant groundglass opacities. Recommend short term follow up CT. CT chest done during her previous hospitalization on 09/20/16 showed no evidence of cavitary lesion impression did find minimal patchy infiltrate/atelectasis in the right lung base superimposed on chronic changes and no pulmonary embolus. Chest X-Ray 09/27/16 shows some hyperinflation slight increased interstitial markings in the right middle lung area which is likely and early infiltrate. Exam (Progress Note) - Constitutional Vitals: Period Temp Pulse Resp BP Sys/Kay Pulse Ox Last 24 Hr 97.6 F-98.9 F 77-95 16-22 103-133/63-71 93-100 Exam: Psychiatric. Oriented 3 acute and chronically ill appearing. HEENT: Eyes sclera conjunctiva are normal face is symmetrical. Salivary glands are normal nares lips and tongue are normal. Tympanic membranes are normal with normal light reflexes. There is tenderness to palpation over the mastoid area and along the right jawline. Neck. Tenderness to palpation along the right side of the neck into the tonsilar /throat area. No palpable lymph nodes. Symmetrical. No meningismus Lymphatics. No submandibular cervical supraclavicular adenopathy. Chest. Mild LAW wheeze on forced expiration with some loose large airway congestion on expiration.There was no significant chest wall tenderness Heart. Regular. Possible midsystolic click. Venous exam of the neck upper and lower extremities are normal. No evidence of deep venous thrombophlebitis. The remainder the physical exam is noncontributory. Plan: Check Iron, TIBC, Reticulocyte count, Ferritin, B12, Folate for low H&H and abnormal indices today with top normal RDW. Throat culture today. Daily theophylline level. Continue current medicines as ordered. Encouraged patient to be up and ambulatory as much as tolerated. Results - Labs CBC & BMP: 09/28/16 06:56 09/28/16 06:56 Lab Results: I have reviewed the past 24 hour labs
[2016-09-28 10:59] LABS: % Iron Saturation 7.5 % (18-50); Ferritin 548.9 ng/ml (8-252)
[2016-09-28 11:37] LABS: Folate 12.3 NG/ML (5.4-24.0)
[2016-09-28] MEDS: BENZONATATE 100 MG CAPSULE PO PRN (20:37)
[2016-09-28] MEDS: ZALEPLON 5 MG CAPSULE PO PRN (20:37)
[2016-09-29] MEDS: AMINOPHYLLINE 500 MG in SODIUM CHLORIDE 0.9% 480 ML IV SCH (00:31)
[2016-09-29] MEDS: MEROPENEM 500 MG in SODIUM CHLORIDE 0.9% 100 ML IV SCH ×3 (02:02→17:02)
[2016-09-29] MEDS: methylPREDNISolone SOD SUC 40 MG/1 ML VIAL IV SCH ×3 (02:04→17:03)
[2016-09-29] MEDS: ALBUTEROL 0.4 MG/ML 30 ML/BOTTLE PO SCH ×3 (06:09→22:09)
[2016-09-29 06:40] LABS: Basophils % 0.1 % (0.0-0.8); Hematocrit 33.3 VOL% (35.7-47.0); Hemoglobin 10.6 GM/DL (12.0-16.0); Immature Granulocytes % 0.7 %; Immature Granulocytes Absolute 0.09 #; Lymphocytes # 1.3 10*3/uL (1.4-4.0); Lymphocytes % 9.7 % (21.3-54.2); Mean Corpuscular HGB Conc 31.8 GM/DL (32-36); Mean Corpuscular Hemoglobin 27 PG (27-34); Mean Corpuscular Volume 85.6 FL (87-102); Monocytes # 0.4 10*3/uL (0.11-0.8); Monocytes % 3.3 % (1.7-12.7); Neutrophils # 11.1 10*3/uL (1.4-7.4); Neutrophils % 86.2 % (38.7-73.9); Platelet Count 256 T/CUMM (130-400); Red Blood Count 3.89 MC/CUMM (3.8-5.5); Red Cell Distribution Width 14.6 % (9.3-17.3); White Blood Count 12.9 T/CUMM (4-12)
[2016-09-29 07:05] LABS: Calcium 8.7 MG/DL (8.5-10.1); Osmolality,Calculated 291.7 MOS/KG (273-304); Potassium 4.2 MMOL/L (3.5-5.1)
[2016-09-29] MEDS: ALBUTEROL/IPRATROPIUM 3 ML NEB RESP TX SCH ×4 (07:14→19:44)
[2016-09-29] MEDS: cycloSPORINE OPH EMUL 1 VIAL BOTH EYES SCH ×2 (09:58→20:15)
[2016-09-29] MEDS: PANTOPRAZOLE 40 MG TABLET PO SCH (09:58)
[2016-09-29] MEDS: MONTELUKAST 10 MG TABLET PO SCH ×2 (09:58→20:14)
[2016-09-29] MEDS: LEFLUNOMIDE 10 MG TABLET PO SCH (09:58)
--- NOTE | 2016-09-29 11:22 | Pulmonology Progress Note ---
Pulmonary - PN: Subj Interval history: Ted Hassan, ANP-BC, GNP-BC, acting as scribe for Dr. Victor Manuel Catherine Mrs. Villalobos was seen today along with Satish Loyola RN, and a male family member. Mrs. Villalobos is a 61 year old white female admitted from the office 09/27/16 for status asthmaticus, acute bronchitis with bronchospasm, severe shortness of breath and wheezing, along with sore throat and productive cough. See admission H&P for full details of admission. She states that she is feeling better today. She certainly appears to be feeling better. She continues to have some SOB, but on chest exam her wheezes have nearly resolved. Expiration is prolonged and slightly incomplete. She will continue on her present medications and treatments. Radiology has been reviewed. On review of past records previous, CXR done by her after school tutor Dr. Kobe Garcia in [place] showed chronic nonspecific interstitial prominence in the lungs with no acute lobar airspace consolidation or effusion, equivocal cavitary lesion in the left midlung zone measuring up to 1.4 cm in diameter. Chronic cystic changes in the left humeral head with advanced erosive changes involving the right humeral head and distal right clavicle. Also CT chest from 08/15/16 was reviewed that was ordered by her after school tutor Dr. Kobe Garcia which showed progressive atelectasis/ infiltration in the lungs especially in the right middle lobe with progressive indeterminant groundglass opacities. Recommend short term follow up CT. CT chest done during her previous hospitalization on 09/20/16 showed no evidence of cavitary lesion. The impression did show minimal patchy infiltrate/atelectasis in the right lung base superimposed on chronic changes, but no pulmonary embolus. Chest X-Ray 09/27/16 shows some hyperinflation with slight increased interstitial markings in the right middle lung area which is likely an early infiltrate. On CBC, the patient has anemia. We discussed this with her. She states anemia has been a lifelong problem. She reports no problems tolerating iron, so we will start ferrous sulfate 325 mg by mouth twice a day. The patient's TSH was elevated at 6.830, but free T4 is normal at 1.13. We will recheck her TSH later on as an outpatient. We suspect that the elevation is secondary to her acute illness. Medications have been reviewed. Sputum Gram stain showed few gram-positive cocci in pairs, chains, and clusters. There are also a few fungal elements seen. Sputum culture shows normal tracey 24 hours. Throat culture has normal tracey 24 hours. Labs been reviewed. White count is 12,900 with 86.2% segs; H&H 10.6/33.3 with decreased indices and top normal red blood cell distribution width; platelet count 256,000; creatinine 0.40, BUN 12, sodium 145, potassium 4.2; iron studies were low consistent with iron deficiency anemia, B12 and folic acid levels were normal; theophylline level today is 3.7. Exam (Progress Note) - Constitutional Vitals: Period Temp Pulse Resp BP Sys/Kay Pulse Ox Last 24 Hr 97.3 F-98.2 F 67-87 16-22 97-125/56-68 96-100 Exam: Chest... See above Heart no gallop Abdomen is nontender and nondistended, bowel sounds positive 4 Extremities with metastases to suggest acute deep venous thrombophlebitis Psychiatric oriented 3 Neurologic long tract motor function is intact Plan: Ferrous sulfate 325 mg by mouth twice a day. Repeat chest x-ray on Sunday. Follow-up sputum culture when available. Continue present therapy. See orders. Results - Labs CBC & BMP: 09/29/16 06:18 09/29/16 06:18
[2016-09-29] MEDS: FERROUS SULFATE 325 MG TABLET PO SCH ×2 (12:58→20:14)
[2016-09-29] MEDS: ZALEPLON 5 MG CAPSULE PO PRN (20:14)
[2016-09-30] MEDS: MEROPENEM 500 MG in SODIUM CHLORIDE 0.9% 100 ML IV SCH ×3 (02:43→17:58)
[2016-09-30] MEDS: methylPREDNISolone SOD SUC 40 MG/1 ML VIAL IV SCH ×3 (02:45→17:58)
[2016-09-30] MEDS: AMINOPHYLLINE 500 MG in SODIUM CHLORIDE 0.9% 480 ML IV SCH (02:46)
[2016-09-30 05:38] LABS: Basophils % 0.1 % (0.0-0.8); Hematocrit 29.8 VOL% (35.7-47.0); Hemoglobin 9.6 GM/DL (12.0-16.0); Immature Granulocytes % 1.2 %; Immature Granulocytes Absolute 0.15 #; Lymphocytes # 1.2 10*3/uL (1.4-4.0); Lymphocytes % 9.2 % (21.3-54.2); Mean Corpuscular HGB Conc 32.2 GM/DL (32-36); Mean Corpuscular Hemoglobin 27 PG (27-34); Mean Corpuscular Volume 82.8 FL (87-102); Mean Platelet Volume 11.7 FL (9.6-12.0); Monocytes # 0.5 10*3/uL (0.11-0.8); Monocytes % 3.8 % (1.7-12.7); Neutrophils % 85.7 % (38.7-73.9); Platelet Count 240 T/CUMM (130-400); Red Cell Distribution Width 14.7 % (9.3-17.3); White Blood Count 12.8 T/CUMM (4-12)
[2016-09-30] MEDS: ALBUTEROL 0.4 MG/ML 30 ML/BOTTLE PO SCH ×3 (06:01→21:09)
[2016-09-30 06:15] LABS: Calcium 7.9 MG/DL (8.5-10.1); Osmolality,Calculated 295.4 MOS/KG (273-304); Potassium 4.2 MMOL/L (3.5-5.1)
[2016-09-30] MEDS: ALBUTEROL/IPRATROPIUM 3 ML NEB RESP TX SCH ×4 (07:18→20:12)
[2016-09-30] MEDS: MONTELUKAST 10 MG TABLET PO SCH ×2 (08:58→21:08)
[2016-09-30] MEDS: LEFLUNOMIDE 10 MG TABLET PO SCH (08:58)
[2016-09-30] MEDS: FERROUS SULFATE 325 MG TABLET PO SCH ×2 (08:58→21:08)
[2016-09-30] MEDS: PANTOPRAZOLE 40 MG TABLET PO SCH (08:58)
[2016-09-30] MEDS: cycloSPORINE OPH EMUL 1 VIAL BOTH EYES SCH ×2 (08:59→21:08)
--- NOTE | 2016-09-30 10:42 | Pulmonology Progress Note ---
Pulmonary - PN: Subj Interval history: Fatou came in with asthmatic bronchitis and is getting IV medicines. She says she's feeling better with less cough and less congestion. She feels like her wheezing is better and her shortness of breath is better. She is tolerating her medicines fairly well. She has Radha on her cultures and nothing else. Overall she says she's feeling better. Exam (Progress Note) - Constitutional Vitals: Period Temp Pulse Resp BP Sys/Kay Pulse Ox Last 24 Hr 97 F-98 F 65-87 16-20 91-125/46-82 98-100 General appearance: no acute distress, under weight - Head Head exam: Present: normal inspection, normocephalic - Eye Eye exam: Present: EOMI. Absent: scleral icterus Pupils: Present: LETICIA - ENT ENT exam: Present: other (no sinus tenderness) - Neck Neck exam: Present: normal inspection. Absent: lymphadenopathy, thyromegaly - Respiratory Respiratory exam: Present: other (she has fairly good breath sounds today without any definite wheezing.). Absent: accessory muscle use, rhonchi, wheezes - Cardiovascular Cardiovascular exam: Present: regular rate and rhythm. Absent: gallop, systolic murmur - GI/Abdominal GI/Abdominal exam: Present: normal bowel sounds, soft. Absent: organomegaly, tenderness - Extremities Exam Extremities exam: Absent: calf tenderness, edema - Neurological Exam Neurological exam: Present: alert, oriented X3, normal gait, CN II-XII intact - Psychiatric Psychiatric exam: Present: normal affect - Skin Skin exam: Present: warm, dry Results - Labs CBC & BMP: 09/30/16 04:39 09/30/16 04:39 Assessment and Plan (1) Asthma Status: Acute Assessment and plan: The patient comes in with asthmatic bronchitis and is getting antibiotics and steroids. She is feeling better now. Current Visit: Yes (2) Bronchitis Status: Acute Assessment and plan: The patient has yeast on cultures but otherwise everything is negative. Current Visit: No (3) Rheumatoid arthritis Status: Chronic Assessment and plan: She is followed by rheumatology. Current Visit: No
[2016-09-30] MEDS: FLUCONAZOLE 100 MG TABLET PO SCH (11:58)
[2016-09-30] MEDS: ZALEPLON 5 MG CAPSULE PO PRN (21:11)
[2016-10-01] MEDS: AMINOPHYLLINE 500 MG in SODIUM CHLORIDE 0.9% 480 ML IV SCH (02:21)
[2016-10-01] MEDS: methylPREDNISolone SOD SUC 40 MG/1 ML VIAL IV SCH ×4 (03:02→22:45)
[2016-10-01] MEDS: MEROPENEM 500 MG in SODIUM CHLORIDE 0.9% 100 ML IV SCH ×3 (03:02→17:09)
[2016-10-01] MEDS: ALBUTEROL 0.4 MG/ML 30 ML/BOTTLE PO SCH ×3 (06:18→21:12)
[2016-10-01] MEDS: ALBUTEROL/IPRATROPIUM 3 ML NEB RESP TX SCH ×4 (07:25→19:29)
[2016-10-01] MEDS: FLUCONAZOLE 100 MG TABLET PO SCH (09:01)
[2016-10-01] MEDS: LEFLUNOMIDE 10 MG TABLET PO SCH (09:01)
[2016-10-01] MEDS: FERROUS SULFATE 325 MG TABLET PO SCH ×2 (09:01→21:11)
[2016-10-01] MEDS: PANTOPRAZOLE 40 MG TABLET PO SCH (09:01)
[2016-10-01] MEDS: cycloSPORINE OPH EMUL 1 VIAL BOTH EYES SCH ×2 (09:02→21:12)
[2016-10-01] MEDS: MONTELUKAST 10 MG TABLET PO SCH ×2 (09:06→21:11)
--- NOTE | 2016-10-01 10:39 | Pulmonology Progress Note ---
Pulmonary - PN: Subj Interval history: Fatou came in with asthmatic bronchitis and is getting IV medicines. She says she's feeling better with less cough and less congestion. She feels like her wheezing is better and her shortness of breath is better. She does not feel like she needs oxygen now and feels like her breathing is close to baseline. She seems to be tolerating everything okay. Exam (Progress Note) - Constitutional Vitals: Period Temp Pulse Resp BP Sys/Kay Pulse Ox Last 24 Hr 97.0 F-98.2 F 56-89 16-21 117-135/57-69 97-100 Exam: General appearance: no acute distress, under weight, she is quite comfortable sitting up in bed. - Head Head exam: Present: normal inspection, normocephalic - Eye Eye exam: Present: EOMI. Absent: scleral icterus Pupils: Present: LETICIA - ENT ENT exam: Present: other (no sinus tenderness) - Neck Neck exam: Present: normal inspection. Absent: lymphadenopathy, thyromegaly - Respiratory Respiratory exam: Present: She has fairly good breath sounds bilaterally with good air movement and very minimal rhonchi on forced expiration. - Cardiovascular Cardiovascular exam: Present: regular rate and rhythm. Absent: gallop, systolic murmur - GI/Abdominal GI/Abdominal exam: Present: normal bowel sounds, soft. Absent: organomegaly, tenderness - Extremities Exam Extremities exam: Absent: calf tenderness, edema - Neurological Exam Neurological exam: Present: alert, oriented X3, normal gait, CN II-XII intact - Psychiatric Psychiatric exam: Present: normal affect - Skin Skin exam: Present: warm, dry Results - Labs CBC & BMP: 09/30/16 04:39 09/30/16 04:39 Assessment and Plan (1) Asthma Status: Acute Assessment and plan: The patient comes in with asthmatic bronchitis and is getting antibiotics and steroids. She feels like her breathing is close to baseline now. We will start changing her to oral medicines. Current Visit: Yes (2) Bronchitis Status: Acute Assessment and plan: The patient has yeast on cultures but otherwise everything is negative. Current Visit: No (3) Rheumatoid arthritis Status: Chronic Assessment and plan: She is followed by rheumatology. Current Visit: No
[2016-10-02] MEDS: MEROPENEM 500 MG in SODIUM CHLORIDE 0.9% 100 ML IV SCH ×3 (01:50→18:18)
[2016-10-02] MEDS: ALBUTEROL 0.4 MG/ML 30 ML/BOTTLE PO SCH ×3 (05:42→22:45)
[2016-10-02] MEDS: ALBUTEROL/IPRATROPIUM 3 ML NEB RESP TX SCH ×4 (07:44→19:48)
--- NOTE | 2016-10-02 08:24 | XRay Report ---
History: Asthmatic bronchitis. Shortness of breath Date: 10/02/2016 at 7:07 AM Study: Chest x-ray PA and lateral Comparison exam: Chest x-ray September 27, 2016 The cardiomediastinal silhouette is unchanged from the previous study. The pulmonary vasculature is not engorged. The lungs are well expanded and. There is some continued platelike subsegmental atelectasis in the right lung base, minimally improved. There is no new or worsening infiltrate. There is no significant pleural effusion. The osseous structures are unchanged. There is chronic deformity of the right humeral head as before in this patient with a history of rheumatoid arthritis. Impression: Improving mild subsegmental atelectasis in the right lung base compared to the previous study PROCEDURE INTERPRETED AT [facility] DEPARTMENT OF RADIOLOGY Final Report Signed by: Dr. Deepthi Marcum
[2016-10-02] MEDS: cycloSPORINE OPH EMUL 1 VIAL BOTH EYES SCH ×2 (10:31→21:14)
[2016-10-02] MEDS: FERROUS SULFATE 325 MG TABLET PO SCH ×2 (10:31→21:14)
[2016-10-02] MEDS: LEFLUNOMIDE 10 MG TABLET PO SCH (10:31)
[2016-10-02] MEDS: MONTELUKAST 10 MG TABLET PO SCH ×2 (10:32→21:14)
[2016-10-02] MEDS: PANTOPRAZOLE 40 MG TABLET PO SCH (10:32)
[2016-10-02] MEDS: FLUCONAZOLE 100 MG TABLET PO SCH (10:32)
--- NOTE | 2016-10-02 11:24 | Pulmonology Progress Note ---
Pulmonary - PN: Subj Interval history: Is a 61-year-old white female who was admitted with status asthmaticus and right lower lung pneumonia. She was seen today along with her friend Tere Tang. Today's chest x-ray shows 95% resolution of right lower lung infiltrate. On chest exam today she has prolonged expiration. Her IV Aminophyllin been stopped. Today I will start her on theophylline 200 mg p.o. twice daily. I have asked this patient to get up and move around a good bit and hopefully she will be ready for discharge by tomorrow. Labs been reviewed Medicines have been reviewed. Vital signs. See below Chest. Mild prolongation of expiration. Slight loose large airway congestion. Heart. Regular. No gallop Abdomen. Nondistended. Nontender. Positive bowel sounds Extremities. No evidence of deep venous thrombophlebitis. No edema. Psychiatric. Oriented 3. Cooperative. Pupils irises sclera conjunctiva eyelids are normal. Face is symmetrical. Lips and tongue are normal. Neck. Symmetrical. No meningismus. Neurologic. Cranial nerves are intact long track motor functions intact Skin of the face and hands showed no cancerous infectious lesions. No other areas of skin were examined The remainder the physical exam was noncontributory. Plan. 1. Theophylline 200 mg p.o. twice daily. 2. Possible discharge in the morning. 3. Increase activity. He is to mobilize sputum. Exam (Progress Note) - Constitutional Vitals: Period Temp Pulse Resp BP Sys/Kay Pulse Ox Last 24 Hr 97.5 F-98 F 63-87 16-20 118-140/67-73 97-100 Results - Labs CBC & BMP: 09/30/16 04:39 09/30/16 04:39
[2016-10-02] MEDS: THEOPHYLLINE ER (24 HR) 400 MG CAPSULE PO SCH (11:50)
[2016-10-02] MEDS: methylPREDNISolone SOD SUC 40 MG/1 ML VIAL IV SCH ×2 (11:50→22:45)
[2016-10-02] MEDS: ZALEPLON 5 MG CAPSULE PO PRN (21:14)
[2016-10-02] MEDS: BENZONATATE 100 MG CAPSULE PO PRN (21:14)
[2016-10-03] MEDS: MEROPENEM 500 MG in SODIUM CHLORIDE 0.9% 100 ML IV SCH ×2 (01:27→10:14)
[2016-10-03] MEDS: ALBUTEROL 0.4 MG/ML 30 ML/BOTTLE PO SCH (06:01)
[2016-10-03] MEDS ORDERED: NON-FORMULARY MEDICATION (Etanercept [Enbrel] 25 MG) SQ SCH (07:20)
[2016-10-03] MEDS: ALBUTEROL/IPRATROPIUM 3 ML NEB RESP TX SCH ×2 (07:28→11:20)
[2016-10-03] MEDS: LEFLUNOMIDE 10 MG TABLET PO SCH (08:26)
[2016-10-03] MEDS: FLUCONAZOLE 100 MG TABLET PO SCH (08:29)
[2016-10-03] MEDS: THEOPHYLLINE ER (24 HR) 400 MG CAPSULE PO SCH (08:29)
[2016-10-03] MEDS: FERROUS SULFATE 325 MG TABLET PO SCH (08:29)
[2016-10-03] MEDS: PANTOPRAZOLE 40 MG TABLET PO SCH (08:30)
[2016-10-03] MEDS: MONTELUKAST 10 MG TABLET PO SCH (08:30)
[2016-10-03] MEDS: cycloSPORINE OPH EMUL 1 VIAL BOTH EYES SCH (08:50)
[2016-10-03 09:21] VITALS: BP 108/65
[2016-10-03] MEDS: methylPREDNISolone SOD SUC 40 MG/1 ML VIAL IV SCH (10:13)
--- NOTE | 2016-10-03 11:17 | Pulmonology Progress Note ---
Pulmonary - PN: Subj Interval history: Ted Hassan, ANP-BC, GNP-BC, acting as scribe for Dr. Victor Manuel Catherine Mrs. Villalobos was seen today along with Elisa Garcia RN. Mrs. Villalobos is doing very well this morning. She is wheeze free. She feels she can now safely be managed at home and we agree. Medications have been reviewed. She will continue on a tapering dose of Prednisone at discharge. She will not need any more antibiotics. Labs have been reviewed. Theophylline level today is 3.0. Exam (Progress Note) - Constitutional Vitals: Period Temp Pulse Resp BP Sys/Kay Pulse Ox Last 24 Hr 97.3 F-98.2 F 67-79 16-18 108-133/65-87 95-100 Exam: Chest is wheeze free Heart no gallop Abdomen is nontender and nondistended, bowel sounds positive 4 Extremities with nothing to suggest acute deep venous thrombophlebitis Psychiatric oriented 3 Neurologic long tract motor function is intact Plan: She has now met maximum hospital benefit and will be discharged home. Please see the discharge note for more information. Results - Labs CBC & BMP: 09/30/16 04:39 09/30/16 04:39
--- NOTE | 2016-10-03 11:29 | Discharge Summary ---
Hospital Course - Hospital Course Hospital Course: Ted Hassan, ANP-BC, GNP-BC, acting as scribe for Dr. Victor Manuel Catherine Mrs. Villalobos is a 61 year old white female from [place], [place], who was admitted from [facility] 09/27/16 for status asthmaticus, acute bronchitis with bronchospasm, severe shortness of breath and wheezing, sore throat, and productive cough. See admission H&P for full details of admission. Note, her PCP is Dr. Temo Ray. At admission, she was started on IV aminophylline, IV Solumedrol, and oral Albuterol. Her Singulair was increased to BID. With these interventions, her breathing has come under much better control. She is wheeze free. Sputum gram stain showed few gram positive cocci and few fungal elements. Culture grew Radha albicans. Throat culture also grew Radha albicans. She has been treated with Diflucan since 09/30/16. She will complete 7 days total. On review of past records, previous CXR done 08/02/16 by her dynamic balancer set up worker Dr. Kobe Garcia in [place] showed chronic nonspecific interstitial prominence in the lungs with no acute lobar airspace consolidation or effusion, equivocal cavitary lesion in the left midlung zone measuring up to 1.4 cm in diameter. Chronic cystic changes in the left humeral head with advanced erosive changes involving the right humeral head and distal right clavicle. Also CT chest from 08/15/16 was reviewed that was ordered by her dynamic balancer set up worker Dr. Kobe Garcia which showed progressive atelectasis/infiltration in the lungs especially in the right middle lobe with progressive indeterminant groundglass opacities. Recommend short term follow up CT. CT chest done during her previous hospitalization on 09/20/16 showed no evidence of cavitary lesion. The impression did show minimal patchy infiltrate/atelectasis in the right lung base superimposed on chronic changes, but no pulmonary embolus. Chest X-Ray showed some hyperinflation with slight increased interstitial markings in the right middle lung area which was felt to be an early infiltrate. On CBC, the patient has had anemia. She stated anemia has been a lifelong problem. She reported no problems tolerating iron, so we started ferrous sulfate 325 mg by mouth twice a day. She will continue this at discharge. The patient's TSH was elevated at 6.830, but free T4 was normal at 1.13. We will recheck her TSH later on as an outpatient. We suspect that the elevation is secondary to her acute illness. Cold agglutinins were negative. Legionella was obtained 09/27/16, but at the time of discharge is still pending. At discharge, white count is 12,800 (from 09/30/16) with 85.7% segs, 9.2% lymphs, and 3.8% monos; H&H 9.6/29.8 with low to low normal indices and top normal RDW; PLT count 240,000; creatinine 0.50, BUN 16, NA+ 147, K+ 4.2, Ca+ low at 7.9, albumin 4.5, total protein 8.1; iron was low at 16, iron sat was low at 7.5, TIBC was low at 213; ferritin was elevated at 548.9; B12 elevated at 928, folate normal at 12.3; LFTs WNL; theophylline level 3.0; urinalysis showed no evidence of infection. For more information regarding Mrs. Villalobos's past medical history, family history, social history, admit labs, admit xrays and admit exam, please see the admission note dated 09/27/16. Impression: #1 Status asthmaticus refractory to OP treatment---resolved #2 Acute bronchitis with bronchospasm secondary to gram positive cocci and/or gram negative rods---resolved #3 Asthma #4 Early right lower lung pneumonia---resolved #5 Elevated TSH with normal Free T4 felt most likely secondary to her acute illness #6 Severe rheumatoid arthritis requiring Immunologic modifying medicines #7 See past history. Plan: Prednisone 10mg PO BID, Albuterol 1mg PO Q8H, Tessalon 200mg PO TID PRN, Restasis one gtt OU BID, Feosol 325mg PO BID, Diflucan 100mg PO daily x 3 days, Mucinex 600mg PO BID, Arava 20mg PO daily, Singulair 10mg PO BID, Enbrel 25mg subQ on Tuesdays, Protonix 40mg PO daily, and Theophylline 400mg PO daily (or 200mg PO BID). She will be scheduled to follow-up with Barbara Sandhu NP, in approximately two weeks with a theophylline level. If she is wheeze free then and doing well, we will try to decrease her Prednisone to 5mg PO BID x 2 weeks and then 5mg PO daily x 2 weeks. She will continue her routine care with Dr. Ray. Specialty Discharge - Follow Up or Referrals Follow up with: Barbara Sandhu CFNP [Advanced Practice Nurse] - 2 Weeks (with theophylline level...NOT A SUNDAY) Discharge Plan - Discharge Data Disposition: Disch To Home/Self Care Discharge Diet: regular diet Activity: resume usual activities as tolerated - Discharge Medications New Albuterol Liquid [Proventil Liquid] 1 mg PO Q8HR #225 mls Theophylline ER Cap (24 Hr) [Dayday-24] 400 mg PO DAILY #30 capsule Ferrous Sulfate Tab [Feosol Original Tab] 325 mg PO BID #60 tablet Fluconazole Tab [Diflucan Tab] 100 mg PO DAILY #3 tablet Montelukast Tab [Singulair Tab] 10 mg PO BID #60 tablet Pantoprazole Tab [Protonix Tab] 40 mg PO DAILY #30 tablet predniSONE TAB [PredniSONE] 10 mg PO BID #34 tablet Continue Etanercept [Enbrel] 25 mg SQ Q7DAY cycloSPORINE OPH EMUL [Restasis] 1 drop BOTH EYES BID Guaifenesin [Guaifenesin ER] 600 mg PO BID #30 tab.er.12h Leflunomide [Arava] 20 mg PO DAILY Benzonatate [Tessalon] 200 mg PO TID #30 capsule Discontinued Montelukast Tab [Singulair Tab] 10 mg PO DAILY #30 tablet - Follow Up or Referral - Forms/Instructions Exam - Constitutional Vitals: Period Temp Pulse Resp BP Sys/Kay Pulse Ox Last 24 Hr 97.3 F-98.2 F 67-79 16-18 108-133/65-87 95-100 Discharge Results Procedures and tests throughout hospitalization: Pending Orders 09/27/16 18:42 Legionella Pneumophilia Ab Routine 10/04/16 04:00 Theophylline IN AM 10/05/16 04:00 Theophylline IN AM Labs on day of discharge: Labs from last 24 hours 10/03/16 05:34 Theophylline 3.0 L DS: Provider Date of admission: 09/27/16 17:31 Primary care physician: Temo Ray MD Attending physician on admission: Victor Manuel Catherine MD Discharging clinician: RASHAD Chaudhari
--- NOTE | 2016-10-10 12:52 | Physician Query Form ---
CLICK EDIT DOCUMENT TO SELECT QUERY ANSWER --> OK --> SIGN Pepper Munson RN Clinical Glue Drier Operator W) [phone] (f) [phone] [email or web address] PROVIDERS: Make your selection(s) from the choices in EACH section by typing an "x" and enter comments in the comment section. Please use your independent medical judgment in providing your response. This request does not imply that any particular answer is desired or expected. CLINICAL INDICATORS: (Providers should not edit this section) Based on documentation of " Sputum gram stain showed few gram positive cocci and few fungal elements. Culture grew Radha albicans. Throat culture also grew Radha albicans. She has been treated with Diflucan since 09/30/16". Based on the above, could you clarify the appropriate diagnosis, if significant , that supports the above abnormalities and additional evaluation, monitoring, and/or treatment rendered: ( ) Pt. treated for radha of the lung (X ) Pt. not treated for radha of the lung (X ) Other, please specify: Oral candidiasis ( ) Clinically unable to determine COMMENTS: Use of terms such as suspected, likely, or probable (associated with a specific diagnosis that is being evaluated, monitored, or treated as if it exists) are acceptable and can be restated in the discharge summary if not ruled out. MTDD
== END 2016-10-03 12:15 | disposition home or self-care (01) | DRG 194 ==
LOC: N.5E 17:31
PROVIDERS: ADMIT Internal Medicine Pulmonary Disease; ATTEND Internal Medicine Pulmonary Disease